=== PATIENT | female | born 1965 | race Caucasian/White ===

== ENCOUNTER → 2018-08-18 | Outpatient (CLI) | payer BC ==
--- NOTE | 2018-08-18 19:21 | REP ---
LEFT FOOT, FOUR VIEWS: HISTORY: Plantar fasciitis. There is no acute fracture or dislocation. The joint spaces are normal in appearance. IMPRESSION:There is no acute fracture or dislocation. Electronically Signed by Kee Chew MD 08/18/2018 07:26 P
== END ==
LOC: M WUC 15:57
PROVIDERS: ATTEND Physician Assistant
DX: M72.2 Plantar fascial fibromatosis (principal)